=== PATIENT | female | born 1950 | race Caucasian/White ===

== ENCOUNTER → 2022-04-08 15:03 | Outpatient (BNVA) | payer OTHER, SELFPAY | PROVIDERS: Visit Provider Surgery | DX: L72.0 Epidermal cyst (principal) | CPT/HCPCS: 99202 ==

== ENCOUNTER 2022-07-28 16:13 | Outpatient (REF) | payer OTHER, SELFPAY ==
--- NOTE | ~2022-07-28 | US_ITS ---
EXAMINATION: US extremity nonvascular CLINICAL INFORMATION: Epidermal cyst COMPARISON: None. TECHNIQUE: Targeted sonograms in the region of the midline back were obtained at the site of the palpable abnormality. US/US extremity nonvascular FINDINGS/IMPRESSION: The area of palpable abnormality appears to correspond to a prominent posterior spinous process of a thoracic vertebra. No soft tissue mass or fluid collection identified by ultrasound at the site of the palpable abnormality.
== END 2022-07-28 16:14 | disposition home or self-care (01) ==
LOC: HO.US 16:13
PROVIDERS: Visit Provider Surgery
DX: L72.0 Epidermal cyst (principal)
CPT/HCPCS: 76882

== ENCOUNTER 2024-04-26 09:08 | Outpatient (AMB) | payer OTHER, SELFPAY ==
--- NOTE | 2024-04-26 09:31 | A.OFFVIS_ITS ---
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 Patient reports numbness and tingling off and on, however her pinky finger i numb all the time. 3rd, 4th and 5ht has finger locking. Patient states pain is worse through out the day. Denies any prior injuries or surgeries to the right hand. Patient is interested on injection today. 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 The patient was referred by the [facility]. She was seen by Compa BROOKS at [facility] on 03/24/24 status post a fall, which occurred in October 2023. She was switched to gabapentin 400 mg TID and ordered an x-ray of the right hand. While in the office today, the patient reports intermittent numbness and tingling sensation in the right fingers; however, she mentions constant numbness in the fifth finger. She also reports experiencing locking of the third, fourth, and fifth fingers. She reports worsening pain throughout the day. She denies any prior injury or surgeries to the right hand. She is interested in injection today. Patient has a past medical history significant for a cardiac stent and is on Eliquis. She also has a medical history of COPD and is on oxygen baseline. [facility] Surgical History History of back surgery History of cholecystectomy History of eye surgery History of removal of cyst Family History Maternal Aunt Breast cancer Social History Alcohol intake: never Patient Tobacco Use Status: Current everyday Tobacco user Review of Systems Const All systems reviewed & are unremarkable except as noted in HPI and below Physical Exam Const General: cooperative and no acute distress Orientation/consciousness: patient oriented x3 Resp Effort & Inspection: normal respiratory effort and able to speak in complete sentences Cardio Peripheral pulses: Peripheral pulses 2+ throughout Skin General skin exam: no rashes or lesions noted Neuro General: patient oriented x3 Extrem Other: Right hand: Normal to inspection. No ecchymosis, erythema, or edema. She reports dense numbness in the 5th finger. Pain in the second, third and fourth finger. Able to perform full finger flexion, extension, abduction, adduction, finger cross, okay sign, and thumbs up without deficit. Able to make a closed fist. Sensation intact. Capillary refill is brisk. Radial pulse intact. Assessment & Plan Assessment & Plan (1) Cubital tunnel syndrome on right: Code(s): G56.21 - Lesion of ulnar nerve, right upper limb Category: Medical Plan Ms. Cooley is a 73-year-old right hand dominant female who presents in the office today, as a new patient, for an evaluation of right third, fourth, and fifth digit pain status post a fall. The patient was referred by the [facility]. She was seen by Compa BROOKS at [facility] on 03/24/24 status post a fall, which occurred in October 2023. She was down and resting on the right upper extremity for an unknown time. She complains of dense numbness in the little finger and pain in the index, middle and significant pin in the ring finger. She was switched to gabapentin 400 mg TID and ordered an x- ray of the right hand. Patient has a past medical history significant for a cardiac stent and is on Eliquis. She also has a medical history of COPD and is on oxygen baseline. The patient had an EMG study that revealed ulnar neuropathy and ulnar decompress ion. She has a past medical history of cardiac stent and is on Eliquis and she also has a history of COPD and is on oxygen baseline. She will need clearance from both specialties prior to booking for her surgery. I did speak with Dr. Brock regarding this patient and she hs approved of this plan. Follow-up will be with Dr. Brock for the preoperative appointment, or sooner if needed. Orders: Orders XR hand RT min 3V Today M79.643 - Pain in unspecified hand Patient Instructions: Scribed by Jaz Iraheta medical technologist generalisthillary adams PA-C on 04/26/24 at 09:58 am EST. Coding Level of Care Code New Pt Level 4 (43440) Diagnoses Cubital tunnel syndrome on right G56.21
== END 2024-04-26 10:50 | disposition home or self-care (01) ==
LOC: HO.HOS 09:08
PROVIDERS: Visit Provider Physician Assistant
DX: G56.21 Lesion of ulnar nerve, right upper limb (principal)
CPT/HCPCS: 99204

== ENCOUNTER 2024-04-26 09:12 | Outpatient (REF) | payer OTHER, SELFPAY | END 2024-04-26 09:13 | disposition home or self-care (01) | LOC: HO.HOSX 09:12 | PROVIDERS: Visit Provider Orthopaedic Surgery | DX: M79.643 Pain in unspecified hand (principal); G56.21 Lesion of ulnar nerve, right upper limb; Z95.5 Presence of coronary angioplasty implant and graft; Z79.01 Long term (current) use of anticoagulants; J44.9 Chronic obstructive pulmonary disease, unspecified; Z99.81 Dependence on supplemental oxygen | CPT/HCPCS: 73130; 99202 ==